=== PATIENT | male | born 1965 | race Caucasian/White ===

== ENCOUNTER 2019-12-11 15:09 | Inpatient (IN) | payer MEDICARE, SELFPAY ==
[2019-12-11] VITALS (34 sets, daily range): BP systolic 110–158; BP diastolic 65–102; PULSE 72–98; RESP 16–28; TEMP 37.2–37.7; O2SAT 90–100; BMI 35.8
[2019-12-11] MEDS: ondansetron 2 mg/ML SDV 2 mL 4 MG IVP ×2 (17:11→19:59)
[2019-12-11] MEDS: morphine 4 mg/mL SDV 1 mL IVP (17:11)
[2019-12-11] MEDS: sodium chloride 0.9% 1,000 ML 999 ML IV (17:12)
[2019-12-11 17:17] LABS: Basophils % 0.3 %; Eosinophils # 0.2 10^3/uL (0.0-0.8); Eosinophils % 1.5 %; Hematocrit 36.7 % (42.0-52.0); Hemoglobin 14.2 g/dL (11.7-16.6); Lymphocytes # 1.1 10^3/uL (0.8-4.8); Mean Corpuscular HGB Conc 38.7 g/dL (30.0-36.0); Mean Corpuscular Hemoglobin 29.3 pg (28.0-34.0); Mean Corpuscular Volume 75.7 fL (80-94); Mean Platelet Volume 10.5 fL (7.4-10.4); Monocytes # 1.2 10^3/uL (0.2-0.9); Monocytes % 10.1 %; Neutrophils # 9.3 10^3/uL (1.8-7.7); Neutrophils % 77.6 %; Nucleated Red Blood Cells % 0 %; Platelet Count 272 10^3/cmm (130-400); Red Blood Count 4.85 10^6/uL (4.1-5.3); Red Cell Distribution Width 16.9 % (12.1-15.1)
--- NOTE | 2019-12-11 17:23 | CTR_ITS ---
PROCEDURE INFORMATION: Exam: CT Abdomen And Pelvis Without Contrast Exam date and time: 12/11/2019 5:33 PM Age: 54 years old Clinical indication: Abdominal pain; Prior surgery; Surgery type: Appy, renal transplant; Additional info: Abdominal pain, h/o renal transport TECHNIQUE: Imaging protocol: Computed tomography of the abdomen and pelvis without contrast. Radiation optimization: All CT scans at this facility use at least one of these dose optimization techniques: automated exposure control; mA and/or kV adjustment per patient size (includes targeted exams where dose is matched to clinical indication); or iterative reconstruction. COMPARISON: No relevant prior studies available. RADIATION DOSE METRICS: Total DLP: 1424.64 mGy-cm FINDINGS: Lungs: Mild atelectasis. Heart: Small pericardial effusion. Liver: Normal. No mass. Gallbladder and bile ducts: Sludge in the gallbladder. The bile ducts are normal. Pancreas: Edema in the pancreatic head and proximal body with peripancreatic fat stranding. Trace amount of fluid in the retroperitoneum inferior to the pancreas and duodenum. Spleen: Normal. No splenomegaly. Adrenals: Normal. No mass. Kidneys and ureters: Atrophic [place] kidneys. 5.5 cm fluid density left renal cyst. Transplanted kidney in the lower right abdomen with mild perinephric stranding and mild hydronephrosis. 2.5 cm oval hypodensity in the transplanted kidney has Hounsfield units of 0. Stomach and bowel: Scattered air-fluid levels and fluid in the small bowel without obstruction. Appendix: The appendix is not visualized. Intraperitoneal space: Unremarkable. No free air. No significant fluid collection. Vasculature: Unremarkable. No abdominal aortic aneurysm. Lymph nodes: Unremarkable. No enlarged lymph nodes. Bladder: Unremarkable as visualized. Reproductive: Unremarkable as visualized. Bones/joints: L5 chronic left L5 pars fracture. No compression fracture. Soft tissues: Metal sutures in the anterior abdominal wall. Small fat containing umbilical hernia. CT/CT abdomen pelvis wo con [id number] IMPRESSION: 1. Acute interstitial edematous pancreatitis involving the head and proximal body. 2. Mild hydronephrosis in the transplanted right kidney with mild perinephric stranding. Rejection or pyelonephritis cannot be excluded. 3. 2.5 cm fluid-density cyst in the transplanted kidney. 5.5 cm fluid density cyst in the [place] left kidney. No further workup is recommended. Radiation Dose CTDIVOL = (mGy): DLP = 1424.64 (mGy-cm)
[2019-12-11 17:41] LABS: Albumin Level 3.4 g/dL (3.5-5.2); Alkaline Phosphatase 91 IU/L (40-130); Anion Gap 15.8 (5-19); Blood Urea Nitrogen 15 mg/dL (6-20); Calcium 8.9 mg/dL (8.5-10.5); Carbon Dioxide 26 mmol/L (22-29); Chloride 86 mmol/L (98-107); Globulin 3.2 g/dL (1.3-4.6); Glomerular Filtration Rate 48.6 mL/min (90-130); Glucose 215 mg/dL (65-115); Osmolality Calculated 263 mOsm/kg (285-295); Sodium 125 mmol/L (136-145); Total Bilirubin 0.3 mg/dL (0.15-1.2); Total Protein 6.6 g/dL (6.6-8.7)
--- NOTE | 2019-12-11 17:44 | ED_ITS ---
Documented by User: Delia Brooks MD 12/12/19 07:42 HPI - Abdominal Pain General: Chief Complaint: Abdominal Pain Stated Complaint: POSS DEHYDRATED Time Seen by Provider: 12/11/19 16:14 History of Present Illness: HPI narrative: This patient is a 54-year-old male presenting today with abdominal pain. His history is significant for a kidney transplant in 1983. He started seeing a new non destructive evaluation manager and was diagnosed with anemia. On Sunday he had a iron infusion for the first time. Sunday afternoon he started having abdominal pain and cramping. The symptoms have been ongoing since then. He has had a poor appetite, nausea and dry heaves but no vomiting. He did not have a bowel movement for several days and thought that was the cause of his symptoms. He has been taking stool softeners and laxatives and this morning did an enema. He had a small bowel movement around noon but it did not change his abdominal pain and cramping. He has not been having any blood in the stool. He has been urinating normally. His only other abdominal surgery was an appendicitis when he was a teenager. He has had multiple surgeries for skin cancer related to his antirejection medications. He denies fever, shortness of breath, cough. MD elicited complaint: abdominal pain Pertinent past history: constipation Onset (ago): day(s) (3) Pain Consistency: constant Location: Diffuse and Periumbilical Severity: severe Quality: cramping Associated Symptoms: Reports anorexia and nausea; Denies chills, fever(s) and vomiting Review of Systems General: Reports: 10 or more systems reviewed and unremarkable except in HPI and below Const: Denies: fever(s), chills, fatigue or malaise Eyes: Denies: change in vision ENMT: Denies: odynophagia Card: Denies: chest pain or swelling of feet/ankles Resp: Denies: dyspnea, productive cough or non-productive cough GI: Reports: abdominal pain and nausea; Denies: vomiting : Denies: flank pain Musc: Denies: neck pain or back pain Skin/Breast: Denies: rash Neuro: Denies: headache(s), numbness in extremities or weakness in extremities Ravin/Lymph: Denies: easy bruising or easy bleeding PFS ED PFSH: Medical History (Updated 12/11/19 @ 20:09 by Mandy Chand MD) Dyslipidemia Hypertension Immunosuppression Medical marijuana use Nephritis Skin cancer Squamous cell cancer Surgical History (Updated 12/11/19 @ 20:02 by Mandy Chand MD) Kidney transplant recipient 1984 Family History (Updated 12/11/19 @ 20:02 by Mandy Chand MD) Other Hypertension Denies family history of Hyperlipidemia Lung disease Social History Smoking and tobacco status: never smoked Physical Exam Const: COMMON NORMALS: no acute distress, patient oriented x3, no limitations and alert GENERAL APPEARANCE: cooperative and comfortable HENMT: HEAD & SCALP: normal to inspection FACE & SINUS: normal facial exam Eye: GENERAL EYE: appearance normal, both eyes and all related structures Neck/C-Spine: COMMON NORMALS: supple, no meningeal signs and no JVD Chest: COMMONS NORMALS: normal inspection of the chest Resp: COMMON NORMALS: normal respiratory effort, No use of accessory muscles and clear to auscultation bilaterally AUSCULTATION: clear to auscultation bilaterally Cardio: COMMON NORMALS: no JVD, regular rate, regular rhythm and No murmurs present (Cardio) RATE: regular rate RHYTHM: regular rhythm GI: AUSCULTATION: Yes normoactive bowel sounds PALPATION: Yes Tenderness to palpation present (GI) Details: other (umbilical to epigastrum) Back/Pelvis: COMMON NORMALS: thoracic and lumbar spine normal to inspection Extremity: COMMON NORMALS: normal to inspection Neuro: COMMON NORMALS: patient oriented x3, moves all extremities, no focal motor deficits and no sensory deficits noted SENSORIUM/ORIENTATION: Yes alert MENINGEAL SIGNS: Yes no meningeal signs Psych: COMMON NORMALS: mental status grossly normal, cooperative and normal affect Skin: COMMON NORMALS: no rashes or lesions noted and turgor normal GENERAL SKIN EXAM: no rashes or lesions noted and turgor normal Course ED course: Patient presenting with abdominal pain. He has history of a kidney transplant years ago. No other abdominal surgeries other than appendix nature. Labs are reported to be very lipemic and so have not been reported out yet. CT without contrast is ordered. He has had some IV fluids and pain medicine. Vital Signs: Vital signs: Vital Signs Temperature 99.0 F 12/11/19 22:45 Pulse Rate 80 12/12/19 05:25 Respiratory Rate 21 H 12/12/19 05:25 Blood Pressure 138/84 12/12/19 05:15 Pulse Oximetry 95 12/12/19 04:15 MDM - Abdominal Pain Lab Data: Labs: Lab Results 12/11/19 12/11/19 12/11/19 Range/Units 17:00 17:00 17:20 WBC 12.0 H (4.0-10.0) 10^3/ uL RBC 4.85 (4.1-5.3) 10^6/u L Hgb 14.2 (11.7-16.6) g/dL Hct 36.7 L (42.0-52.0) % MCV 75.7 L (80-94) fL MCH 29.3 (28.0-34.0) pg MCHC 38.7 H (30.0-36.0) g/dL RDW 16.9 H (12.1-15.1) % Plt Count 272 (130-400) 10^3/c mm MPV 10.5 H (7.4-10.4) fL Neut % (Auto) 77.6 % Lymph % (Auto) 9.0 % [place] % (Auto) 10.1 % Eos % (Auto) 1.5 % Baso % (Auto) 0.3 % Neut # (Auto) 9.3 H (1.8-7.7) 10^3/u L Lymph # (Auto) 1.1 (0.8-4.8) 10^3/u L [place] # (Auto) 1.2 H (0.2-0.9) 10^3/u L Eos # (Auto) 0.2 (0.0-0.8) 10^3/u L Baso # (Auto) 0.0 (0.0-0.1) 10^3/u L Nucleated RBC % (a uto) 0 % Nucleated RBCs # 0.0 /100WBC Sodium 125 L (136-145) mmol/L Potassium 2.8 L* (3.5-5.1) mmol/L Chloride 86 L (98-107) mmol/L Carbon Dioxide 26 (22-29) mmol/L Anion Gap 15.8 (5-19) BUN 15 (6-20) mg/dL Creatinine 1.5 H (0.7-1.2) mg/dL GFR Calculation 48.6 L (90-130) mL/min Glucose 215 H (65-115) mg/dL Calculated Osmolal ity 263 L (285-295) mOsm/k g Calcium 8.9 (8.5-10.5) mg/dL Total Bilirubin 0.3 (0.15-1.2) mg/dL AST 5 (0-40) U/L ALT < 5 (0-41) U/L Alkaline Phosphata se 91 (40-130) IU/L Creatine Kinase 689 H* (39-308) U/L Total Protein 6.6 (6.6-8.7) g/dL Albumin 3.4 L (3.5-5.2) g/dL Globulin 3.2 (1.3-4.6) g/dL Triglycerides 4305 H (0-150) mg/dL Lipase 411 H (13-60) U/L Ethyl Alcohol < 10 (0-10) mg/dL Discharge Plan Discharge Patient Disposition: Admitted As Inpatient Admit Provider: Mandy Chand Clinical Impression: Hypokalemia, Acute hyponatremia Acute pancreatitis Qualifiers: Pancreatitis type: unspecified pancreatitis type Condition: Stable Discharge Date/Time: 12/11/19 21:22 Coding Level of Care Code ED Dip [place] for Chg Fwd Exam Comprehensive Documented by User: Usha See MD 12/11/19 19:19 HPI - Abdominal Pain General: Chief Complaint: Abdominal Pain Stated Complaint: POSS DEHYDRATED Time Seen by Provider: 12/11/19 16:14 PFSH ED PFSH: Medical History (Updated 12/11/19 @ 20:09 by Mandy Chand MD) Dyslipidemia Hypertension Immunosuppression Medical marijuana use Nephritis Skin cancer Squamous cell cancer Surgical History (Updated 12/11/19 @ 20:02 by Mandy Chand MD) Kidney transplant recipient 1984 Family History (Updated 12/11/19 @ 20:02 by Mandy Chand MD) Other Hypertension Denies family history of Hyperlipidemia Lung disease Social History Smoking and tobacco status: never smoked Course Vital Signs: Vital signs: Vital Signs Temperature 99.0 F 12/11/19 22:45 Pulse Rate 80 12/12/19 05:25 Respiratory Rate 21 H 12/12/19 05:25 Blood Pressure 138/84 12/12/19 05:15 Pulse Oximetry 95 12/12/19 04:15 MDM - Abdominal Pain MDM Narrative: Medical decision making narrative: I took patient over from Dr. Brooks. Patient's pain has improved at this time. Patient does have pancreatitis on CT along with hypo-natremia and hypokalemia. I spoke to hospitalist will admit for further rehydration and to replace his potassium. Patient's had no vomiting here. Patient has been stable while in the ER. Lab Data: Labs: Lab Results 12/11/19 12/11/19 12/11/19 Range/Units 17:00 17:00 17:20 WBC 12.0 H (4.0-10.0) 10^3/ uL RBC 4.85 (4.1-5.3) 10^6/u L Hgb 14.2 (11.7-16.6) g/dL Hct 36.7 L (42.0-52.0) % MCV 75.7 L (80-94) fL MCH 29.3 (28.0-34.0) pg MCHC 38.7 H (30.0-36.0) g/dL RDW 16.9 H (12.1-15.1) % Plt Count 272 (130-400) 10^3/c mm MPV 10.5 H (7.4-10.4) fL Neut % (Auto) 77.6 % Lymph % (Auto) 9.0 % [place] % (Auto) 10.1 % Eos % (Auto) 1.5 % Baso % (Auto) 0.3 % Neut # (Auto) 9.3 H (1.8-7.7) 10^3/u L Lymph # (Auto) 1.1 (0.8-4.8) 10^3/u L [place] # (Auto) 1.2 H (0.2-0.9) 10^3/u L Eos # (Auto) 0.2 (0.0-0.8) 10^3/u L Baso # (Auto) 0.0 (0.0-0.1) 10^3/u L Nucleated RBC % (a uto) 0 % Nucleated RBCs # 0.0 /100WBC Sodium 125 L (136-145) mmol/L Potassium 2.8 L* (3.5-5.1) mmol/L Chloride 86 L (98-107) mmol/L Carbon Dioxide 26 (22-29) mmol/L Anion Gap 15.8 (5-19) BUN 15 (6-20) mg/dL Creatinine 1.5 H (0.7-1.2) mg/dL GFR Calculation 48.6 L (90-130) mL/min Glucose 215 H (65-115) mg/dL Calculated Osmolal ity 263 L (285-295) mOsm/k g Calcium 8.9 (8.5-10.5) mg/dL Total Bilirubin 0.3 (0.15-1.2) mg/dL AST 5 (0-40) U/L ALT < 5 (0-41) U/L Alkaline Phosphata se 91 (40-130) IU/L Creatine Kinase 689 H* (39-308) U/L Total Protein 6.6 (6.6-8.7) g/dL Albumin 3.4 L (3.5-5.2) g/dL Globulin 3.2 (1.3-4.6) g/dL Triglycerides 4305 H (0-150) mg/dL Lipase 411 H (13-60) U/L Ethyl Alcohol < 10 (0-10) mg/dL Imaging Data ^: CT Abd/Pel: Radiologist's impression: [address] [address] [address] Scan Report Signed Patient: Jerman Nolan Unit #: [id number] : 1965 Acct#:[id number] Age/Sex: 54 / M ADM Date: 12/11/19 Loc: ER Room/Bed: Attending Dr: Ordering Provider/Ordering MD: Delia Brooks MD Date of Service: 12/11/19 Procedure(s): CT abdomen pelvis wo con [id number] Accession Number(s): [id number] Report Number: [id number] PROCEDURE INFORMATION: Exam: CT Abdomen And Pelvis Without Contrast Exam date and time: 12/11/2019 5:33 PM Age: 54 years old Clinical indication: Abdominal pain; Prior surgery; Surgery type: Appy, renal transplant; Additional info: Abdominal pain, h/o renal transport TECHNIQUE: Imaging protocol: Computed tomography of the abdomen and pelvis without contrast. Radiation optimization: All CT scans at this facility use at least one of these dose optimization techniques: automated exposure control; mA and/or kV adjustment per patient size (includes targeted exams where dose is matched to clinical indication); or iterative reconstruction. COMPARISON: No relevant prior studies available. RADIATION DOSE METRICS: Total DLP: 1424.64 mGy-cm FINDINGS: Lungs: Mild atelectasis. Heart: Small pericardial effusion. Liver: Normal. No mass. Gallbladder and bile ducts: Sludge in the gallbladder. The bile ducts are normal. Pancreas: Edema in the pancreatic head and proximal body with peripancreatic fat stranding. Trace amount of fluid in the retroperitoneum inferior to the pancreas and duodenum. Spleen: Normal. No splenomegaly. Adrenals: Normal. No mass. Kidneys and ureters: Atrophic [place] kidneys. 5.5 cm fluid density left renal cyst. Transplanted kidney in the lower right abdomen with mild perinephric stranding and mild hydronephrosis. 2.5 cm oval hypodensity in the transplanted kidney has Hounsfield units of 0. Stomach and bowel: Scattered air-fluid levels and fluid in the small bowel without obstruction. Appendix: The appendix is not visualized. Intraperitoneal space: Unremarkable. No free air. No significant fluid collection. Vasculature: Unremarkable. No abdominal aortic aneurysm. Lymph nodes: Unremarkable. No enlarged lymph nodes. Bladder: Unremarkable as visualized. Reproductive: Unremarkable as visualized. Bones/joints: L5 chronic left L5 pars fracture. No compression fracture. Soft tissues: Metal sutures in the anterior abdominal wall. Small fat containing umbilical hernia. CT/CT abdomen pelvis con [id number] IMPRESSION: 1. Acute interstitial edematous pancreatitis involving the head and proximal body. 2. Mild hydronephrosis in the transplanted right kidney with mild perinephric stranding. Rejection or pyelonephritis cannot be excluded. 3. 2.5 cm fluid-density cyst in the transplanted kidney. 5.5 cm fluid density cyst in the [place] left kidney. No further workup is recommended. Discharge Plan Discharge Patient Disposition: Admitted As Inpatient Admit Provider: Mandy Chand Clinical Impression: Hypokalemia, Acute hyponatremia Acute pancreatitis Qualifiers: Pancreatitis type: unspecified pancreatitis type Condition: Stable Discharge Date/Time: 12/11/19 21:22 Coding Level of Care Code ED Dip [place] for Chg Fwd Exam Comprehensive
[2019-12-11 17:52] LABS: Alanine Aminotransferase < 5 U/L (0-41); Aspartate Amino Transferase 5 U/L (0-40)
[2019-12-11 18:00] LABS: Creatine Phosphokinase 689 U/L (39-308); Lipase 411 U/L (13-60); Potassium 2.8 mmol/L (3.5-5.1)
[2019-12-11 18:12] LABS: Slide Review Slide Review Perform
--- NOTE | 2019-12-11 19:11 | P.HP_ITS ---
Providers/Chief Complaint Chief Complaint: POSS DEHYDRATED History of Present Illness Jerman Nolan is a 54 year old male who has history of nephritis status post renal transplant 1983, he initially started using sirolimus which caused skin cancer, currently he has started seeing a new transportation manager who has started him on tacrolimus, recently started hydrochlorothiazide for hypertension, he is also on prednisone 10 mg since 1983 came with chief complaint abdominal pain. Patient is stating that his symptoms started on Sunday, he was experiencing epigastric pain 02/15 which is gradually worsening, he has experienced multiple episodes of bilious emesis. He denies any fever, shortness of breath, chest pain, diarrhea. He is endorsing constipation and used enema this morning. He denies radiation of epigastric pain. He is denying dysuria, no change in his voiding habits. He is a non-smoker but endorses to using medical marijuana. Does not drink alcohol. Diagnostics in the ER revealed normal hemodynamics, CT abdomen revealed pancreatitis, no gallstones, I have requested triglyceride levels, alcohol level, Hyponatremia, hypokalemia, MARGOTH Review of Systems Const: Reports: body aches, change in appetite and fatigue Eyes: Denies: blurry vision ENMT: Denies: throat pain Card: Denies: chest pain Resp: Denies: dyspnea GI: Reports: abdominal pain, nausea, vomiting and constipation : Denies: flank pain Musc: Denies: neck pain Skin/Breast: Reports: rash and lesions Neuro: Denies: headache(s) Psych: Denies: anxiety Endo: Denies: polyuria Ravin/Lymph: Denies: easy bruising All/Imm: Denies: urticaria Medications/Allergies Home Medications Medication Instructions Recorded Confirmed Last Taken Type hydrochlorothiazide 25 mg tablet 25 mg PO DAILY #90 tab 09/23/19 12/11/19 12/11/19 Rx atenolol 50 mg PO DAILY 12/11/19 12/11/19 12/10/19 History prednisone 10 mg PO DAILY 12/11/19 12/11/19 12/10/19 History sirolimus [Rapamune] 4 mg PO DAILY 12/11/19 12/11/19 12/10/19 History Allergies Allergy/AdvReac Type Severity Reaction Status Date / Time cephalexin [From Keflex] Allergy ALGY-Rash Verified 12/11/19 16:14 PFSH Acute PFSH: Medical History (Updated 12/11/19 @ 20:04 by Mandy Chand MD) Dyslipidemia Hypertension Immunosuppression Medical marijuana use Nephritis Skin cancer Squamous cell cancer Surgical History (Updated 12/11/19 @ 20:02 by Mandy Chand MD) Kidney transplant recipient 1984 Family History (Updated 12/11/19 @ 20:02 by Mandy Chand MD) Other Hypertension Denies family history of Hyperlipidemia Lung disease Social History Smoking and tobacco status: never smoked Vitals/I&O/Wt Last Vital Signs Temp 99.4 F 12/11/19 15:54 Pulse 83 12/11/19 15:54 Resp 18 12/11/19 17:11 BP 132/85 12/11/19 15:54 Pulse Ox 98 12/11/19 17:11 Weight last 48 hrs Weight 116.573 kg Physical Exam Narrative: EXAM NARRATIVE: Head to toe examination Patient laying comfortably in his bed without any active discomfort He has multiple skin lesions, S1, S2 no tachycardia Abdomen soft, nontender no epigastric tenderness, no signs of retroperitoneal hemorrhage Neurologically nonfocal exam EOMI, PERRLA Lungs are clear to auscultation Melanotic skin lesions all over his body Multiple scar wang over his forehead, face and nose Nose reconstruction Appropriate mood and affect No sign of edema gangrene ulcer of lower extremity Data : 12/11/19 17:00 12/11/19 17:00 A&P Assessment and plan (1) Acute pancreatitis: Status: Acute Qualifiers: Pancreatitis type: unspecified pancreatitis type (2) Hypokalemia: Status: Acute (3) Acute hyponatremia: Status: Acute (4) MARGOTH (acute kidney injury): Status: Acute (5) Dehydration: Status: Acute Additional A&P Information Pancreatitis My suspicion is high for drug-induced pancreatitis, literature supports drug- induced pancreatic inflammation especially with tacrolimus and renal recipients I am checking triglyceride level as these immunosuppressive agents are notorious to cause hyper triglyceridemia N.p.o. Analgesic control with morphine Normal saline 20 KCl at 75 mill per hour Check triglyceride level, lactic acid level, alcohol level, drug screen (I have requested to keep patient in the ER until we receive triglyceride levels to decide about his disposition and appropriate level of care) Hypokalemia due to dehydration Repleted Hyponatremia due to recurrent vomiting and dehydration Continue IV fluid maintenance rate No neurological sign MARGOTH due to dehydration Patient is stating that his baseline creatinine is 1.5 CT abdomen revealed mild hydronephrosis, patient is denying any flank pain, he is voiding urine without any difficulty Monitor creatinine Drug-induced squamous cell skin cancer Patient is seen set making machine operator in [place], he has had multiple Mohs surgeries DVT prophylaxis Heparin N.p.o. Full code Patient uses medical marijuana His new transportation manager is in [place] his name is Dr. Main Attestations Medical Necessity Statement*: Anticipating stay in the hospital to cross more than 2 midnights currently need management for acute pancreatitis Time Spent in Patient Care: 50 Coding Level of Care Code Acute Waiter/Waitress Formal for [facility] Fwd Diagnoses Acute pancreatitis K85.90 Pancreatitis type: unspecified pancreatitis type Hypokalemia E87.6 Acute hyponatremia E87.1 MARGOTH (acute kidney injury) N17.9 Dehydration E86.0
[2019-12-11] MEDS: HYDROmorphone 1 mg/mL INJ 1 mL IVP ×2 (19:58→21:48)
[2019-12-11 20:01] LABS: Alcohol Level < 10 mg/dL (0-10); Triglycerides 4305 mg/dL (0-150)
[2019-12-11 20:23] LABS: Lactic Acid level (Lactate) 0.7 mmol/L (0.5-2.2)
[2019-12-11 21:26] LABS: Protein Urine 1+ (Negative); Urine Appearance Clear (CLEAR); Urine Color Yellow (Yellow); pH Urine 6.5 (5-7)
[2019-12-11 21:27] LABS: Add Urine Microscopic? YES; Bilirubin Urine Neg (NEGATIVE); Blood Urine Neg (Negative); Glucose Urine UA 2+ (Normal); Ketones Urine Negative (Negative); Leukocyte Esterase Urine Negative (Negative); Nitrate Urine Negative (Negative); Urobilinogen Urine Norm (Negative)
[2019-12-11 21:35] LABS: Add Urine Culture? No
[2019-12-11] MEDS: heparin 5,000 unit/mL INJ 1 mL 5000 UNIT SUBCUT (21:49)
[2019-12-11] MEDS: potassium chloride premix 40 MEQ/100 ML PREMIX 25 MEQ IV (21:55)
[2019-12-11] MEDS: lidocaine 1% INJ 20 mL 5 ML IV (21:56)
[2019-12-11] MEDS: insulin regular-human 250 UNIT in sodium chloride 0.9% 250 ML IV (22:10)
[2019-12-11 22:13] LABS: Glucose Point of Care 175 mg/dL (70-110)
--- NOTE | 2019-12-11 22:15 | PC.NURSE ---
Insulin drip started at 2210 @3.45
[2019-12-11 22:32] LABS: Amphetamines Screen Urine Negative (Negative); Barbiturates Screen Urine Negative (Negative); Benzodiazepines Screen Urine Negative (Negative); Cocaine Screen Urine Negative (Negative); Opiate Screen Urine Positive (Negative); PCP Screen Urine Negative (Negative); THC Screen Urine Positive (Negative)
[2019-12-11 23:14] LABS: Glucose Point of Care 178 mg/dL (70-110)
[2019-12-12] VITALS (73 sets, daily range): BP systolic 95–160; BP diastolic 64–102; PULSE 67–84; RESP 14–29; TEMP 36.5; O2SAT 93–96
[2019-12-12] MEDS: insulin regular-human 250 UNIT in sodium chloride 0.9% 250 ML IV (00:10)
[2019-12-12 00:14] LABS: Glucose Point of Care 174 mg/dL (70-110)
[2019-12-12 01:13] LABS: Glucose Point of Care 170 mg/dL (70-110)
[2019-12-12] MEDS: dextrose 5%-ns + KCl 40 40 MEQ/1,000 ML BAG 100 MEQ IV (02:00)
[2019-12-12 02:15] LABS: Glucose Point of Care 166 mg/dL (70-110)
[2019-12-12 03:14] LABS: Glucose Point of Care 187 mg/dL (70-110)
[2019-12-12 04:19] LABS: Glucose Point of Care 181 mg/dL (70-110)
[2019-12-12 05:25] LABS: Basophils % 0.2 %; Eosinophils # 0.2 10^3/uL (0.0-0.8); Eosinophils % 2.2 %; Hematocrit 35.4 % (42.0-52.0); Hemoglobin 12.6 g/dL (11.7-16.6); Lymphocytes # 1.2 10^3/uL (0.8-4.8); Mean Corpuscular HGB Conc 35.6 g/dL (30.0-36.0); Mean Corpuscular Hemoglobin 27.5 pg (28.0-34.0); Mean Corpuscular Volume 77.3 fL (80-94); Mean Platelet Volume 11.1 fL (7.4-10.4); Monocytes # 0.9 10^3/uL (0.2-0.9); Monocytes % 9.4 %; Neutrophils # 6.8 10^3/uL (1.8-7.7); Neutrophils % 73.5 %; Nucleated Red Blood Cells % 0 %; Platelet Count 204 10^3/cmm (130-400); Red Blood Count 4.58 10^6/uL (4.1-5.3); White Blood Count 9.3 10^3/uL (4.0-10.0)
[2019-12-12] MEDS: heparin 5,000 unit/mL INJ 1 mL 5000 UNIT SUBCUT (05:31)
--- NOTE | 2019-12-12 05:46 | PC.NURSE ---
Patient lost iv access. No BG done for the 0500 hour.
[2019-12-12 06:08] LABS: Glucose Point of Care 192 mg/dL (70-110)
[2019-12-12 06:18] LABS: Alkaline Phosphatase 82 IU/L (40-130); Anion Gap 16.3 (5-19); Blood Urea Nitrogen 15 mg/dL (6-20); Calcium 8.3 mg/dL (8.5-10.5); Carbon Dioxide 25 mmol/L (22-29); Chloride 94 mmol/L (98-107); Globulin 3.4 g/dL (1.3-4.6); Glucose 160 mg/dL (65-115); Osmolality Calculated 274 mOsm/kg (285-295); Potassium 3.3 mmol/L (3.5-5.1); Sodium 132 mmol/L (136-145); Total Bilirubin 0.2 mg/dL (0.15-1.2); Total Protein 6.4 g/dL (6.6-8.7)
[2019-12-12 06:29] LABS: Alanine Aminotransferase < 5 U/L (0-41); Aspartate Amino Transferase 5 U/L (0-40)
--- NOTE | 2019-12-12 07:00 | PC.NURSE ---
Report Bedside report complete. Insulin and D5 NS with KCL infusing to the right ac IV access. pt is alert and oriented. no c/o pain at this time.
[2019-12-12 07:50] LABS: Glucose Point of Care 200 mg/dL (70-110)
[2019-12-12 09:02] LABS: Glucose Point of Care 195 mg/dL (70-110)
[2019-12-12 09:06] LABS: Glucose Point of Care 191 mg/dL (70-110)
--- NOTE | 2019-12-12 09:25 | ECG_ITS ---
Measurements Intervals [place] Rate: 77 P: 19 AR: 194 QRS: -18 QRSD: 156 T: 131 QT: 431 QTc: 490 SINUS RHYTHM LEFT BUNDLE BRANCH BLOCK [120+ ms QRS DURATION, 80+ ms Q/S IN V1/V2, 85+ ms R IN I/aVL/V5/V6] No previous ECG available for comparison Electronically Signed On 12-12-2019 17:58:44 CDT by Aaliyah Machado M.D. [email or web address]
[2019-12-12 09:58] LABS: Glucose Point of Care 195 mg/dL (70-110)
--- NOTE | 2019-12-12 10:00 | PC.NURSE ---
Dr. Gomez on the unit facilitating transfer to [facility] to patient's kidney specialist for transplant f/u care.
[2019-12-12] MEDS: tacrolimus 0.5 mg Capsule 4 MG PO (10:10)
[2019-12-12] MEDS: dextrose 5%-sod chloride 0.9% 1,000 ML 150 ML IV (10:12)
[2019-12-12] MEDS: predniSONE 10 mg Tablet PO (10:12)
[2019-12-12] MEDS: atenolol 50 mg Tablet PO (10:12)
[2019-12-12] MEDS: aztreonam 1,000 MG in sodium chloride 0.9% (plus) 50 ML 100 MG IV (10:13)
[2019-12-12 10:17] LABS: Procalcitonin 0.27 ng/mL (0-0.5)
--- NOTE | 2019-12-12 10:25 | USCV_ITS ---
Jerman Nolan Age: 54 Gender: M : 1965 Exam Date: 12/12/2019 12:32 Ordering Phys: Julian Gomez MD Technologist: Sophia Garcia Exam Location: [facility] [place] Indication: [facility] CHANGES BP: 143 / 95 HR: 71 Rhythm: Sinus Technical Quality: Adequate MEASUREMENTS (Male / Female) Normal Values 2D ECHO LV Diastolic Diameter PLAX 4.6 cm 4.2 - 5.9 / 3.9 - 5.3 cm LV Systolic Diameter PLAX 3.3 cm IVS Diastolic Thickness 1.1 cm 0.6 - 1.0 / 0.6 - 0.9 cm IVS Systolic Thickness 1.3 cm LVPW Diastolic Thickness 1.2 cm 0.6 - 1.0 / 0.6 - 0.9 cm LVPW Systolic Thickness 1.8 cm LVOT Diameter 2.2 cm LV Ejection Fraction 2D Teich 54.8 % LV Ejection Fraction MOD 2C 65.1 % LV Ejection Fraction 2C AL 66.2 % LA Diameter 4.4 cm LA Width 3.7 cm LA Height 5.0 cm RA Width 3.6 cm RA Height 5.7 cm M-MODE LV Diastolic Diameter MM 5.9 cm 4.2 - 5.9 / 3.9 - 5.3 cm LV Systolic Diameter MM 4.3 cm LV Ejection Fraction MM Teich 51.8 % IVS Diastolic Thickness MM 1.1 cm 0.6 - 1.0 / 0.6 - 0.9 cm IVS Systolic Thickness MM 1.3 cm LVPW Diastolic Thickness MM 1.1 cm 0.6 - 1.0 / 0.6 - 0.9 cm LVPW Systolic Thickness MM 1.5 cm Aortic Annulus Diameter 3.2 cm LA Ao Ratio MM 1.4 MV E Point Septal Separation 1.2 cm DOPPLER AV Peak Velocity 134.0 cm/s LVOT Peak Velocity 126.0 cm/s AV Area Cont Eq vti 3.3 cm squared AV Area Cont Eq pk 3.6 cm squared MV Peak Velocity 94.0 cm/s MV Area PHT 5.0 cm squared Mitral E to A Ratio 0.9 MV E' Velocity 12.0 cm/s Mitral E to MV E' Ratio 8.5 Mitral E to LV E' Lateral Ratio 6.3 Mitral E to LV E' Septal Ratio 13.0 TR Peak Velocity 99.0 cm/s TR Peak Gradient 4.0 mmHg Right Atrial Pressure 3.0 mmHg Pulmonary Artery Systolic Pressu 6.9 mmHg PV Peak Velocity 126.0 cm/s RV Acceleration Time 0.1 s FINDINGS Left Ventricle Normal left ventricular cavity size. Normal left ventricular systolic function. No regional wall motion abnormalities. Left ventricular ejection fraction is estimated at 55 %. Grade I/IV diastolic dysfunction (abnormal relaxation filling pattern), normal to mildly elevated filling pressures. Right Ventricle The right ventricle is normal in size and function. Right Atrium The right atrium is normal in size. Left Atrium The left atrium is normal in size. Mitral Valve Structurally normal mitral valve without significant stenosis or prolapse. There is no mitral regurgitation. Aortic Valve Structurally normal aortic valve without significant sclerosis or stenosis. There is no aortic regurgitation. Tricuspid Valve Structurally normal tricuspid valve without significant stenosis or regurgitation. Pulmonary artery systolic pressure is normal. Pulmonic Valve Structurally normal pulmonic valve without significant stenosis. There is no pulmonic regurgitation. Pericardium Normal pericardium without effusion. Aorta Normal ascending aorta dimension. CONCLUSIONS 1-Normal left ventricular cavity size. Normal left ventricular systolic function. No regional wall motion abnormalities. Left ventricular ejection fraction is estimated at 55 %. Grade I/IV diastolic dysfunction (abnormal relaxation filling pattern), normal to mildly elevated filling pressures. 2-There is no pericardial effusion. 3-No significant valve abnormalities. 4-Pulmonary artery systolic pressure is within normal limits. 5-Right atrial pressure is around 5 mm of mercury. 6-There are no prior echocardiogram studies to compare. Mandy Romo MD (Electronically Signed) Final Date: 12 December 2019 19:07 S
[2019-12-12 10:30] LABS: Lactate (Lactic Acid level) 0.6 mmol/L (0.5-2.2)
[2019-12-12 10:32] LABS: Creatine Phosphokinase 453 U/L (39-308)
[2019-12-12] MEDS: lidocaine 1% INJ 20 mL 5 ML IV (10:40)
[2019-12-12] MEDS: potassium chloride premix 40 MEQ/100 ML PREMIX 25 MEQ IV (10:41)
[2019-12-12] MEDS: morphine 4 mg/mL SDV 1 mL 2 MG IVP (10:47)
[2019-12-12] MEDS: ondansetron 2 mg/ML SDV 2 mL 4 MG IVP (10:49)
[2019-12-12 11:08] LABS: Glucose Point of Care 171 mg/dL (70-110)
--- NOTE | 2019-12-12 11:45 | PC.NURSE ---
Report called to [facility]
[2019-12-12 12:08] LABS: Glucose Point of Care 155 mg/dL (70-110)
--- NOTE | 2019-12-12 12:55 | PM.TDS ---
Transfer Summary Providers Date of Admission: 12/11/19 19:10 Date of Discharge: 12/12/19 Attending Provider at Admission: Mandy Chand MD Attending Provider at Transfer: Julian Gomez MD Anticipated Date of Transfer: Anticipated date of transfer: 12/12/19 Receiving Facility & Provider: Receiving Provider: [Dr. Jacob] Receiving facility[place] [facility] [place] Diagnoses at Discharge Discharge Diagnosis (1) Acute pancreatitis: Status: Acute Qualifiers: Pancreatitis type: unspecified pancreatitis type (2) Hypokalemia: Status: Acute (3) Acute hyponatremia: Status: Acute (4) MARGOTH (acute kidney injury): Status: Acute (5) Dehydration: Status: Acute (6) Kidney transplant recipient: Status: Acute Problem details: 1983 (7) Pyelonephritis of transplanted kidney: Status: Acute (8) Acute rejection of renal transplant: Status: Acute Reason for Visit Reason for Visit: POSS DEHYDRATED Hospital Course Discharge Summary: Jerman Nolan is a 54 year old male who has history of nephritis status post renal transplant 1983, he initially started using sirolimus which caused skin cancer, currently he has started seeing a new allergy and immunology specialist who has started him on tacrolimus, recently started hydrochlorothiazide for hypertension, he is also on prednisone 10 mg every other day since 1983 came with chief complaint abdominal pain. Patient is stating that his symptoms started on Sunday, he was experiencing epigastric pain 02/15 which is gradually worsening, he has experienced multiple episodes of bilious emesis. He denies any fever, shortness of breath, chest pain, diarrhea. He is endorsing constipation and used enema this morning. He denies radiation of epigastric pain. He is denying dysuria, no change in his voiding habits. He is a non-smoker but endorses to using medical marijuana. Does not drink alcohol. In the ER blood work revealed hypertriglyceridemia of 4300 with a negative alcohol level and a negative drug screen for urine but CT abdomen concerning for pancreatitis and possible pyelonephritis of the transplanted kidney versus rejection. He was admitted to the ICU and started on insulin drip. By morning his triglyceride levels were sent to more than 4700. He has remained hemodynamically stable, afebrile. Given possible need of plasmapheresis and his history of renal transplant and possible organ rejection versus pyelonephritis of the transplanted kidney transfer was sought to a center where patient's parent allergy and immunology specialist is present. Case was discussed with Dr. Jacob at [facility] ICU and he graciously accepted the patient. He has been transferred into likely stable condition for further treatment. Physical Exam Narrative: EXAM NARRATIVE: General: No acute distress, AO x3 HEENT: PERRLA, pupils bilaterally equal and reactive Chest: Normal vesicular breath sounds, no added sounds, equal good air entry bilaterally CVS: S1-S2 regular, no murmurs, no tachycardia, no gallops, no rubs Abdomen: Soft tender in the epigastric and right flank, no rebound no guarding bowel sounds sluggish Neuro: No focal deficits, no facial deformity, AO x3, power 5/5 in all limbs TS Data Data Completed and Pending: Completed Studies During Hospitalization Category Date Time Status CT abdomen pelvis wo con [id number] Urge nt Cat Scan 12/11/19 17:23 Completed Pending at discharge Category Date Time Status Basic Metabolic P lili Routine Lab 12/12/19 14:00 Ordered Blood Culture Sta t Lab 12/12/19 10:06 Results MRSA by PCR Routi ne Lab 12/12/19 12:04 Received Triglycerides Q8H Lab 12/12/19 14:00 Ordered Triglycerides Q8H Lab 12/12/19 22:00 Ordered Triglycerides Q8H Lab 12/13/19 06:00 Ordered Triglycerides Q8H Lab 12/13/19 14:00 Ordered Urine Culture Sta t Lab 12/12/19 09:32 Uncollected CV echo complete* [id number] Routine Ultrasound 12/12/19 10:25 Ordered Labs from last 24 hours 12/12/19 12/12/19 12/12/19 11:54 11:05 10:03 WBC RBC Hgb Hct MCV MCH MCHC RDW Plt Count MPV Neut % (Auto) Lymph % (Auto) [place] % (Auto) Eos % (Auto) Baso % (Auto) Neut # (Auto) Lymph # (Auto) [place] # (Auto) Eos # (Auto) Baso # (Auto) Nucleated RBC % (a uto) Nucleated RBCs # Sodium Potassium Chloride Carbon Dioxide Anion Gap BUN Creatinine GFR Calculation Glucose POC Glucose 155 171 Calculated Osmolal ity Lactic Acid (Sepsi s) Lactate 0.6 Calcium Total Bilirubin AST ALT Alkaline Phosphata se Creatine Kinase Total Protein Albumin Globulin Triglycerides Lipase Procalcitonin Urine Color Urine Appearance Urine pH Ur Specific Gravit y Urine Protein Urine Glucose (UA) Urine Ketones Urine Blood Urine Nitrate Urine Bilirubin Urine Urobilinogen Ur Leukocyte Apryl ase Urine RBC Urine WBC Ur Squamous Epith Cells Ur Transition Epit h Cell Ur Renal Epithelia l Cell Urine Bacteria Urine Mucus Urine Opiates Scre en Ur Barbiturates Sc reen Ur Phencyclidine S crn Ur Amphetamines Sc reen U Benzodiazepines Scrn Urine Cocaine Scre en U Marijuana (THC) Screen Ethyl Alcohol 12/12/19 12/12/19 12/12/19 09:55 08:59 08:10 WBC RBC Hgb Hct MCV MCH MCHC RDW Plt Count MPV Neut % (Auto) Lymph % (Auto) [place] % (Auto) Eos % (Auto) Baso % (Auto) Neut # (Auto) Lymph # (Auto) [place] # (Auto) Eos # (Auto) Baso # (Auto) Nucleated RBC % (a uto) Nucleated RBCs # Sodium Potassium Chloride Carbon Dioxide Anion Gap BUN Creatinine GFR Calculation Glucose POC Glucose 195 195 191 Calculated Osmolal ity Lactic Acid (Sepsi s) Lactate Calcium Total Bilirubin AST ALT Alkaline Phosphata se Creatine Kinase Total Protein Albumin Globulin Triglycerides Lipase Procalcitonin Urine Color Urine Appearance Urine pH Ur Specific Gravit y Urine Protein Urine Glucose (UA) Urine Ketones Urine Blood Urine Nitrate Urine Bilirubin Urine Urobilinogen Ur Leukocyte Apryl ase Urine RBC Urine WBC Ur Squamous Epith Cells Ur Transition Epit h Cell Ur Renal Epithelia l Cell Urine Bacteria Urine Mucus Urine Opiates Scre en Ur Barbiturates Sc reen Ur Phencyclidine S crn Ur Amphetamines Sc reen U Benzodiazepines Scrn Urine Cocaine Scre en U Marijuana (THC) Screen Ethyl Alcohol 12/12/19 12/12/19 12/12/19 07:43 06:07 04:38 WBC RBC Hgb Hct MCV MCH MCHC RDW Plt Count MPV Neut % (Auto) Lymph % (Auto) [place] % (Auto) Eos % (Auto) Baso % (Auto) Neut # (Auto) Lymph # (Auto) [place] # (Auto) Eos # (Auto) Baso # (Auto) Nucleated RBC % (a uto) Nucleated RBCs # Sodium Potassium Chloride Carbon Dioxide Anion Gap BUN Creatinine GFR Calculation Glucose POC Glucose 200 192 Calculated Osmolal ity Lactic Acid (Sepsi s) Lactate Calcium Total Bilirubin AST ALT Alkaline Phosphata se Creatine Kinase 453 H* Total Protein Albumin Globulin Triglycerides Lipase Procalcitonin 0.27 Urine Color Urine Appearance Urine pH Ur Specific Gravit y Urine Protein Urine Glucose (UA) Urine Ketones Urine Blood Urine Nitrate Urine Bilirubin Urine Urobilinogen Ur Leukocyte Apryl ase Urine RBC Urine WBC Ur Squamous Epith Cells Ur Transition Epit h Cell Ur Renal Epithelia l Cell Urine Bacteria Urine Mucus Urine Opiates Scre en Ur Barbiturates Sc reen Ur Phencyclidine S crn Ur Amphetamines Sc reen U Benzodiazepines Scrn Urine Cocaine Scre en U Marijuana (THC) Screen Ethyl Alcohol 12/12/19 12/12/19 12/12/19 04:38 04:38 04:38 WBC 9.3 RBC 4.58 Hgb 12.6 Hct 35.4 L MCV 77.3 L MCH 27.5 L MCHC 35.6 D RDW 17.0 H Plt Count 204 MPV 11.1 H Neut % (Auto) 73.5 Lymph % (Auto) 13.0 [place] % (Auto) 9.4 Eos % (Auto) 2.2 Baso % (Auto) 0.2 Neut # (Auto) 6.8 Lymph # (Auto) 1.2 [place] # (Auto) 0.9 Eos # (Auto) 0.2 Baso # (Auto) 0.0 Nucleated RBC % (a uto) 0 Nucleated RBCs # 0.0 Sodium 132 L Potassium 3.3 L Chloride 94 L Carbon Dioxide 25 Anion Gap 16.3 BUN 15 Creatinine 1.9 H GFR Calculation 37.0 L Glucose 160 H POC Glucose Calculated Osmolal ity 274 L Lactic Acid (Sepsi s) Lactate Calcium 8.3 L Total Bilirubin 0.2 AST 5 ALT < 5 Alkaline Phosphata se 82 Creatine Kinase Total Protein 6.4 L Albumin 3.0 L Globulin 3.4 Triglycerides > 4738 H Lipase Procalcitonin Urine Color Urine Appearance Urine pH Ur Specific Gravit y Urine Protein Urine Glucose (UA) Urine Ketones Urine Blood Urine Nitrate Urine Bilirubin Urine Urobilinogen Ur Leukocyte Apryl ase Urine RBC Urine WBC Ur Squamous Epith Cells Ur Transition Epit h Cell Ur Renal Epithelia l Cell Urine Bacteria Urine Mucus Urine Opiates Scre en Ur Barbiturates Sc reen Ur Phencyclidine S crn Ur Amphetamines Sc reen U Benzodiazepines Scrn Urine Cocaine Scre en U Marijuana (THC) Screen Ethyl Alcohol 12/12/19 12/12/19 12/12/19 04:15 03:12 02:12 WBC RBC Hgb Hct MCV MCH MCHC RDW Plt Count MPV Neut % (Auto) Lymph % (Auto) [place] % (Auto) Eos % (Auto) Baso % (Auto) Neut # (Auto) Lymph # (Auto) [place] # (Auto) Eos # (Auto) Baso # (Auto) Nucleated RBC % (a uto) Nucleated RBCs # Sodium Potassium Chloride Carbon Dioxide Anion Gap BUN Creatinine GFR Calculation Glucose POC Glucose 181 187 166 Calculated Osmolal ity Lactic Acid (Sepsi s) Lactate Calcium Total Bilirubin AST ALT Alkaline Phosphata se Creatine Kinase Total Protein Albumin Globulin Triglycerides Lipase Procalcitonin Urine Color Urine Appearance Urine pH Ur Specific Gravit y Urine Protein Urine Glucose (UA) Urine Ketones Urine Blood Urine Nitrate Urine Bilirubin Urine Urobilinogen Ur Leukocyte Apryl ase Urine RBC Urine WBC Ur Squamous Epith Cells Ur Transition Epit h Cell Ur Renal Epithelia l Cell Urine Bacteria Urine Mucus Urine Opiates Scre en Ur Barbiturates Sc reen Ur Phencyclidine S crn Ur Amphetamines Sc reen U Benzodiazepines Scrn Urine Cocaine Scre en U Marijuana (THC) Screen Ethyl Alcohol 12/12/19 12/12/19 12/11/19 01:10 00:10 23:11 WBC RBC Hgb Hct MCV MCH MCHC RDW Plt Count MPV Neut % (Auto) Lymph % (Auto) [place] % (Auto) Eos % (Auto) Baso % (Auto) Neut # (Auto) Lymph # (Auto) [place] # (Auto) Eos # (Auto) Baso # (Auto) Nucleated RBC % (a uto) Nucleated RBCs # Sodium Potassium Chloride Carbon Dioxide Anion Gap BUN Creatinine GFR Calculation Glucose POC Glucose 170 174 178 Calculated Osmolal ity Lactic Acid (Sepsi s) Lactate Calcium Total Bilirubin AST ALT Alkaline Phosphata se Creatine Kinase Total Protein Albumin Globulin Triglycerides Lipase Procalcitonin Urine Color Urine Appearance Urine pH Ur Specific Gravit y Urine Protein Urine Glucose (UA) Urine Ketones Urine Blood Urine Nitrate Urine Bilirubin Urine Urobilinogen Ur Leukocyte Apryl ase Urine RBC Urine WBC Ur Squamous Epith Cells Ur Transition Epit h Cell Ur Renal Epithelia l Cell Urine Bacteria Urine Mucus Urine Opiates Scre en Ur Barbiturates Sc reen Ur Phencyclidine S crn Ur Amphetamines Sc reen U Benzodiazepines Scrn Urine Cocaine Scre en U Marijuana (THC) Screen Ethyl Alcohol 12/11/19 12/11/19 12/11/19 22:07 20:07 20:07 WBC RBC Hgb Hct MCV MCH MCHC RDW Plt Count MPV Neut % (Auto) Lymph % (Auto) [place] % (Auto) Eos % (Auto) Baso % (Auto) Neut # (Auto) Lymph # (Auto) [place] # (Auto) Eos # (Auto) Baso # (Auto) Nucleated RBC % (a uto) Nucleated RBCs # Sodium Potassium Chloride Carbon Dioxide Anion Gap BUN Creatinine GFR Calculation Glucose POC Glucose 175 Calculated Osmolal ity Lactic Acid (Sepsi s) Lactate Calcium Total Bilirubin AST ALT Alkaline Phosphata se Creatine Kinase Total Protein Albumin Globulin Triglycerides Lipase Procalcitonin Urine Color Yellow Urine Appearance Clear Urine pH 6.5 Ur Specific Gravit y 1.010 Urine Protein 1+ H Urine Glucose (UA) 2+ Urine Ketones Negative Urine Blood Neg Urine Nitrate Negative Urine Bilirubin Neg Urine Urobilinogen Norm Ur Leukocyte Apryl ase Negative Urine RBC None Urine WBC None Ur Squamous Epith Cells None Ur Transition Epit h Cell None Ur Renal Epithelia l Cell None Urine Bacteria None Urine Mucus None Urine Opiates Scre en Positive H Ur Barbiturates Sc reen Negative Ur Phencyclidine S crn Negative Ur Amphetamines Sc reen Negative U Benzodiazepines Scrn Negative Urine Cocaine Scre en Negative U Marijuana (THC) Screen Positive H Ethyl Alcohol 12/11/19 12/11/19 12/11/19 20:02 17:20 17:00 WBC RBC Hgb Hct MCV MCH MCHC RDW Plt Count MPV Neut % (Auto) Lymph % (Auto) [place] % (Auto) Eos % (Auto) Baso % (Auto) Neut # (Auto) Lymph # (Auto) [place] # (Auto) Eos # (Auto) Baso # (Auto) Nucleated RBC % (a uto) Nucleated RBCs # Sodium 125 L Potassium 2.8 L* Chloride 86 L Carbon Dioxide 26 Anion Gap 15.8 BUN 15 Creatinine 1.5 H GFR Calculation 48.6 L Glucose 215 H POC Glucose Calculated Osmolal ity 263 L Lactic Acid (Sepsi s) 0.7 Lactate Calcium 8.9 Total Bilirubin 0.3 AST 5 ALT < 5 Alkaline Phosphata se 91 Creatine Kinase 689 H* Total Protein 6.6 Albumin 3.4 L Globulin 3.2 Triglycerides 4305 H Lipase 411 H Procalcitonin Urine Color Urine Appearance Urine pH Ur Specific Gravit y Urine Protein Urine Glucose (UA) Urine Ketones Urine Blood Urine Nitrate Urine Bilirubin Urine Urobilinogen Ur Leukocyte Apryl ase Urine RBC Urine WBC Ur Squamous Epith Cells Ur Transition Epit h Cell Ur Renal Epithelia l Cell Urine Bacteria Urine Mucus Urine Opiates Scre en Ur Barbiturates Sc reen Ur Phencyclidine S crn Ur Amphetamines Sc reen U Benzodiazepines Scrn Urine Cocaine Scre en U Marijuana (THC) Screen Ethyl Alcohol < 10 12/11/19 17:00 WBC 12.0 H RBC 4.85 Hgb 14.2 Hct 36.7 L MCV 75.7 L MCH 29.3 MCHC 38.7 H RDW 16.9 H Plt Count 272 MPV 10.5 H Neut % (Auto) 77.6 Lymph % (Auto) 9.0 [place] % (Auto) 10.1 Eos % (Auto) 1.5 Baso % (Auto) 0.3 Neut # (Auto) 9.3 H Lymph # (Auto) 1.1 [place] # (Auto) 1.2 H Eos # (Auto) 0.2 Baso # (Auto) 0.0 Nucleated RBC % (a uto) 0 Nucleated RBCs # 0.0 Sodium Potassium Chloride Carbon Dioxide Anion Gap BUN Creatinine GFR Calculation Glucose POC Glucose Calculated Osmolal ity Lactic Acid (Sepsi s) Lactate Calcium Total Bilirubin AST ALT Alkaline Phosphata se Creatine Kinase Total Protein Albumin Globulin Triglycerides Lipase Procalcitonin Urine Color Urine Appearance Urine pH Ur Specific Gravit y Urine Protein Urine Glucose (UA) Urine Ketones Urine Blood Urine Nitrate Urine Bilirubin Urine Urobilinogen Ur Leukocyte Apryl ase Urine RBC Urine WBC Ur Squamous Epith Cells Ur Transition Epit h Cell Ur Renal Epithelia l Cell Urine Bacteria Urine Mucus Urine Opiates Scre en Ur Barbiturates Sc reen Ur Phencyclidine S crn Ur Amphetamines Sc reen U Benzodiazepines Scrn Urine Cocaine Scre en U Marijuana (THC) Screen Ethyl Alcohol Addt'l Data from Hospital Stay: [place] [address] CT Scan Report Signed Patient: Rose Nolan #: [id number] : 1965Acct#:[id number] Age/Sex: 54 / MADM Date: 12/11/19 Loc: ERRoom/Bed: Attending Dr: Ordering Provider/Ordering MD: Delia Brooks MD Date of Service: 12/11/19 Procedure(s): CT abdomen pelvis wo con [id number] Accession Number(s): [id number] Report Number: [id number] PROCEDURE INFORMATION: Exam: CT Abdomen And Pelvis Without Contrast Exam date and time: 12/11/2019 5:33 PM Age: 54 years old Clinical indication: Abdominal pain; Prior surgery; Surgery type: Appy, renal transplant; Additional info: Abdominal pain, h/o renal transport TECHNIQUE: Imaging protocol: Computed tomography of the abdomen and pelvis without contrast. Radiation optimization: All CT scans at this facility use at least one of these dose optimization techniques: automated exposure control; mA and/or kV adjustment per patient size (includes targeted exams where dose is matched to clinical indication); or iterative reconstruction. COMPARISON: No relevant prior studies available. RADIATION DOSE METRICS: Total DLP: 1424.64 mGy-cm FINDINGS: Lungs: Mild atelectasis. Heart: Small pericardial effusion. Liver: Normal. No mass. Gallbladder and bile ducts: Sludge in the gallbladder. The bile ducts are normal. Pancreas: Edema in the pancreatic head and proximal body with peripancreatic fat stranding. Trace amount of fluid in the retroperitoneum inferior to the pancreas and duodenum. Spleen: Normal. No splenomegaly. Adrenals: Normal. No mass. Kidneys and ureters: Atrophic viejas kidneys. 5.5 cm fluid density left renal cyst. Transplanted kidney in the lower right abdomen with mild perinephric stranding and mild hydronephrosis. 2.5 cm oval hypodensity in the transplanted kidney has Hounsfield units of 0. Stomach and bowel: Scattered air-fluid levels and fluid in the small bowel without obstruction. Appendix: The appendix is not visualized. Intraperitoneal space: Unremarkable. No free air. No significant fluid collection. Vasculature: Unremarkable. No abdominal aortic aneurysm. Lymph nodes: Unremarkable. No enlarged lymph nodes. Bladder: Unremarkable as visualized. Reproductive: Unremarkable as visualized. Bones/joints: L5 chronic left L5 pars fracture. No compression fracture. Soft tissues: Metal sutures in the anterior abdominal wall. Small fat containing umbilical hernia. CT/CT abdomen pelvis con [id number] IMPRESSION: 1. Acute interstitial edematous pancreatitis involving the head and proximal body. 2. Mild hydronephrosis in the transplanted right kidney with mild perinephric stranding. Rejection or pyelonephritis cannot be excluded. 3. 2.5 cm fluid-density cyst in the transplanted kidney. 5.5 cm fluid density cyst in the viejas left kidney. No further workup is recommended. Vitals: Last Vital Signs Temp 97.7 F 12/12/19 08:00 Pulse 71 12/12/19 11:00 Resp 23 H 12/12/19 11:00 BP 144/99 12/12/19 11:00 Pulse Ox 94 12/12/19 11:00 TS Medications Medications Home Medications hydrochlorothiazide 25 mg tablet 25 mg PO DAILY #90 tab 09/23/19 [Rx Confirmed 12/11/19] atenolol 50 mg PO DAILY 12/11/19 [History Confirmed 12/11/19] prednisone 10 mg PO DAILY 12/11/19 [History Confirmed 12/11/19] sirolimus [Rapamune] 4 mg PO DAILY 12/11/19 [History Confirmed 12/11/19] Active Medications Atenolol (Tenormin) 50 mg PO DAILY LAUREN Last Admin: 12/12/19 10:12 Dose: 50 mg Documented by: Dextrose (D50w) 25 ml IVP ONCE PRN; Protocol PRN Reason: hypoglycemia protocol Dextrose (D50w) 50 ml IVP PRN PRN; Protocol PRN Reason: hypoglycemia protocol Glucagon (Glucagen) 1 mg IM ONCE PRN; Protocol PRN Reason: Adult Acute Hypoglycemia Prot Heparin Sodium (Beef Lung) (Heparin) 5,000 unit SUBCUT Q12H LAUREN Dextrose (D5w) 500 mls @ 100 mls/hr IV ONCE PRN; Protocol PRN Reason: Adult Acute Hypoglycemia Prot Insulin Human Regular 250 unit (/ Sodium Chloride) 252.5 mls @ 0 mls/hr IV .Q0M LAUREN; Protocol Last Titration: 12/12/19 06:07 Dose: 4 mls/hr, 4 mls/hr Documented by: Dextrose/Sodium Chloride (Dextrose 5%-Sod Chloride 0.9%) 1,000 mls @ 150 mls/hr IV .Q6H40M LAUREN Last Admin: 12/12/19 10:12 Dose: 150 mls/hr Documented by: Aztreonam 1,000 mg/ Sodium (Chloride) 50 mls @ 100 mls/hr IV Q12H LAUREN; Protocol Last Admin: 12/12/19 10:13 Dose: 100 mls/hr Documented by: Potassium Chloride (K-Hussein) 40 meq in 100 mls @ 25 mls/hr IV ONCE ONE Stop: 12/12/19 13:59 Last Admin: 12/12/19 10:41 Dose: 25 mls/hr Documented by: Morphine Sulfate (Morphine) 2 mg IVP Q4H PRN PRN Reason: SEVERE PAIN Last Admin: 12/12/19 10:47 Dose: 2 mg Documented by: Ondansetron HCl (Zofran) 4 mg IVP Q6H PRN PRN Reason: NAUSEA AND VOMITING Last Admin: 12/12/19 10:49 Dose: 4 mg Documented by: Prednisone (Prednisone) 10 mg PO Q48H [facility] Last Admin: 12/12/19 10:12 Dose: 10 mg Documented by: Tacrolimus (Prograf) 4 mg PO DAILY [facility] Last Admin: 12/12/19 10:10 Dose: 4 mg Documented by: Discharge Plan Discharge Patient Disposition: Xfer Other Condition: Stable Prescriptions: No Action hydrochlorothiazide 25 mg tablet 25 mg PO DAILY Qty: 90 RF: 0 prednisone 10 mg tablet 10 mg PO DAILY RF: 0 atenolol 50 mg tablet 50 mg PO DAILY RF: 0 Rapamune 2 mg Tablet 4 mg PO DAILY RF: 0 Discharge Orders: Transfer Out of Facility (Order); Ordered 12/12/19 Ordered By: Julian Gomez Discharge Diet: As Directed Discharge Activity: Resume usual activity Transfer Attestations Time Spent in Transfer Care*: critical care time (Reviewing images, discussing with vp account director Alexis Mason, managing insulin drip and fluids) Critical Care Time (min): 80 Specific Discharge Activities: Specific discharge activities: educating patient, discussing with pcp/other providers, discussing with special education case manager/social workers/dc planners, documenting/other paperwork and evaluating patient/reviewing data Status at Transfer: Cognitive status at transfer: cognitively intact, Behavioral status at transfer: cooperative, Functional status at transfer: independent ambulation Overall status at transfer: patient is progressing back to baseline Quality Metrics Clinical Quality Measures: During this hospital stay, did patient experience: None Coding Level of Care Code Acute Seam Hammerer for Kia Fwd Diagnoses Acute pancreatitis K85.90 Pancreatitis type: unspecified pancreatitis type Hypokalemia E87.6 Acute hyponatremia E87.1 MARGOTH (acute kidney injury) N17.9 Dehydration E86.0 Kidney transplant recipient Z94.0 Pyelonephritis of transplanted kidney T86.19; N12 Acute rejection of renal transplant T86.11
--- NOTE | 2019-12-12 13:59 | PC.NURSE ---
pt transferred to [facility] via [facility]. [facility] updated with ETA.
[2019-12-12 16:25] LABS: Glucose Point of Care 153 mg/dL (70-110)
== END 2019-12-12 14:00 | disposition short-term general hospital (02) | DRG 439 ==
LOC: ER 19:19 → ICU 20:40
PROVIDERS: Nurse Practitioner Family; Admitting Provider Internal Medicine; Emergency Provider Emergency Medicine; Visit Provider Student in an Organized Health Care Education/Training Program
DX: K85.90 Acute pancreatitis without necrosis or infection, unspecified (principal); N17.9 Acute kidney failure, unspecified; E87.1 Hypo-osmolality and hyponatremia; Z94.0 Kidney transplant status; E87.6 Hypokalemia; I10 Essential (primary) hypertension; C44.92 Squamous cell carcinoma of skin, unspecified; E86.0 Dehydration; Z85.828 Personal history of other malignant neoplasm of skin; E78.5 Hyperlipidemia, unspecified; F12.90 Cannabis use, unspecified, uncomplicated
CPT/HCPCS: 12345; 36415; 36416; 51798; 74176; 80053; 80306; 80307; 81001; 82550; 82962; 83605; 83690; 84145; 84478; 85025; 87040; 87641; 93005; 93306; 96372; 96375; 99283; J1170; J1644; J1815; J2001; J2270; J2405; J3480; J3490; J7030; J7050; J7507; J7512

== ENCOUNTER 2020-08-10 13:38 | Outpatient (CLI) | payer MEDICARE, SELFPAY ==
--- NOTE | 2020-08-10 13:46 | XR_ITS ---
WS: [id number] ABDOMEN SERIES Supine and upright views of the abdomen CLINICAL INFORMATION: ABD DISTENSION, (GASEOUS), UNSPECIFIED ABDOMINAL PAIN COMPARISON: None. FINDINGS: Surgical clips right lower quadrant and pelvis. No free air on the upright view. Normal bowel gas pattern. Scattered stool in the colon. No bowel dis tention. No evidence of high-grade obstruction. XR/XR abdomen min 2V [id number] IMPRESSION: Unremarkable bowel gas pattern
== END 2020-08-10 13:39 | disposition home or self-care (01) ==
PROVIDERS: PCP Nurse Practitioner Family; Visit Provider Nurse Practitioner Family
DX: R14.0 Abdominal distension (gaseous) (principal); R10.9 Unspecified abdominal pain
CPT/HCPCS: 74019

== ENCOUNTER 2020-12-16 08:05 | Outpatient (CLI) | payer MEDICARE, SELFPAY ==
--- NOTE | 2020-12-16 08:17 | XR_ITS ---
WS: [id number] Left femur and thigh, AP and lateral views, 12/16/2020 Clinical Data: INJURY OF LEFT LOWER LEG Comparison: None. Findings: No fractures or dislocations are seen. The soft tissues are normal. The visualized knee shows no abno rmalities. XR/XR femur LT min 2V* [id number] Impression: Negative left femur and thigh.
--- NOTE | 2020-12-16 08:17 | XR_ITS ---
WS: [id number] Left leg including the tibia and fibula, AP and lateral views, 12/16/2020 Clinical Data: EDEMA/INJURY OF L LOWER LEG Comparison: None. Findings: No fractures or dislocations are seen. The tibia and fibula are intact. The soft tissues are normal. XR/XR tibia fibula LT 2V [id number] Impression: Negative for fracture.
== END 2020-12-16 08:06 | disposition home or self-care (01) ==
LOC: RAD 08:09
PROVIDERS: PCP Nurse Practitioner Family; Visit Provider Nurse Practitioner Family
DX: R60.0 Localized edema (principal); S89.92XA Unspecified injury of left lower leg, initial encounter; X58.XXXA Exposure to other specified factors, initial encounter
CPT/HCPCS: 73552; 73590

== ENCOUNTER 2021-01-27 13:16 | Outpatient (CLI) | payer MEDICARE, SELFPAY ==
--- NOTE | 2021-01-27 13:25 | USCV_ITS ---
Ovidio Jerman Age: 55 Gender: M : 1965 Exam Date: 01/27/2021 13:58 Ordering Phys: Marvel Cabello Technologist: Faina Skelton [place] [facility] [place] TRAUMA LT LAT KNEE HISTORY: Trauma Lt Lat Knee PROCEDURES: Venous duplex imaging was performed in only the left lower extremity. The following venous structures were evaluated: common femoral vein, profunda vein, proximal portion of the greater saphenous vein, superficial femoral vein, and the popliteal vein. In addition, the posterior tibial and peroneal trunk were evaluated. Serial compression, augmentation maneuvers, and spectral Doppler flow evaluation were performed. Area of injury also studied FINDINGS: Normal 2-D Doppler and augmentation and compressibility throughout the lower extremity venous structures. Additional imaging through the proximal calf veins also reveals no thrombus. Limited evaluation of the greater saphenous vein is patent with no thrombus.. Area of interest is neg CONCLUSIONS No evidence of left lower extremity DVT. Joe Cortez MD (Electronically Signed) Final Date: 27 January 2021 16:39 S
== END 2021-01-27 13:17 | disposition home or self-care (01) ==
LOC: RAD 13:20
PROVIDERS: PCP Nurse Practitioner Family; Visit Provider Physician Assistant
DX: R60.0 Localized edema (principal); S89.92XA Unspecified injury of left lower leg, initial encounter; X58.XXXA Exposure to other specified factors, initial encounter
CPT/HCPCS: 93971

== ENCOUNTER 2022-03-29 13:58 | Outpatient (CLI) | payer MEDICARE, SELFPAY ==
--- NOTE | 2022-03-29 14:23 | XR_ITS ---
WS: [id number] SCREENING DEXA SCAN [employer] CLINICAL INFORMATION: SYSTEMIC STEROID USE, KIDNEY TRANSPLANT STATUS COMPARISON: None. FINDINGS: The L1-L4 bone mineral density measures 1.385 g/cm2. This corresponds to a T score score of 1.4 and Z score of 1.0. Left femoral neck bone mineral density measures 0.946 g/cm2. This corresponds to a T score of -1.1 an d Z score of -1.1. Right femoral neck bone mineral density measures 0.460 g/cm2. This corresponds to a T score -4.4of an d Z score of -4.5. Mean femoral neck bone mineral density measures 0.703 g/cm2. This corresponds to a T score of -2.8 an d Z score of -2.8. XR/XR DEXA axial skeleton* [id number] IMPRESSION: Osteoporosis in the femoral necks, worse in the RIGHT femoral neck. Normal bone mineralization lumbar spine. Patient's FRAX calculated 10 year probability for major osteoporotic fracture i s 37.2 % and osteoporotic hip fracture is 29.8%.
== END 2022-03-29 13:59 | disposition home or self-care (01) ==
PROVIDERS: PCP Nurse Practitioner Family; Visit Provider Nurse Practitioner Family
DX: Z94.0 Kidney transplant status (principal); Z79.52 Long term (current) use of systemic steroids; E11.21 Type 2 diabetes mellitus with diabetic nephropathy; M81.0 Age-related osteoporosis without current pathological fracture
CPT/HCPCS: 77080

== ENCOUNTER 2022-10-25 13:48 | Emergency (ER) | payer MEDICARE, SELFPAY ==
[2022-10-25 14:01] VITALS: BP 141/81; PULSE 74; TEMP 36.4; O2SAT 97; BMI 33.5
[2022-10-25] MEDS: carbamide peroxide Otic 15 mL Btl 5 DROP EAR-RIGHT (15:07)
--- NOTE | 2022-10-25 15:09 | ED_ITS ---
HPI - Ear Problem General: Chief complaint: Ear Stated complaint: Right Ear pain Time Seen by Provider: 10/25/22 14:37 History of Present Illness: Patient is a 57-year-old male comes to the ED with right ear pain. Patient says last night his right ear was itching and bothering him quite a bit and felt very full. He described it as feeling like his ear was underwater. Today he felt a pop in his right ear and some clear and bloody discharge came out of ear. He endorses having some pain in right ear now as well. He also says he is having trouble hearing out of his right ear since his right ear popped. Denies any fevers or any other symptoms. Associated symptoms: Reports ear or mastoid pain (Right ear); Denies fever(s), headache(s) or neck pain Review of Systems Const: Denies: fever(s), chills or fatigue Eyes: Denies: change in vision or eye discomfort ENMT: Reports: ear or mastoid pain (Right ear), ear discharge (Right ear-clear and bloody drainage) and change in hearing (Right ear); Denies: throat pain, odynophagia, nasal discharge or nasal congestion Card: Denies: chest pain, palpitations, edema, swelling of feet/ankles, dyspnea on exertion or orthopnea Resp: Denies: dyspnea, productive cough or non-productive cough GI: Denies: abdominal pain, nausea, vomiting, diarrhea, constipation or hematochezia : Denies: flank pain, difficulty urinating, dysuria or hematuria Musc: Denies: neck pain, back pain or extremity swelling Skin/Breast: Denies: rash or new lesions Neuro: Denies: headache(s), numbness in extremities or weakness in extremities PFSH ED PFSH: Medical History Dyslipidemia Hypertension Immunosuppression Medical marijuana use Nephritis Skin cancer Squamous cell cancer Surgical History Kidney transplant recipient 1984 Family History Other Hypertension Denies family history of Hyperlipidemia Lung disease Social History Smoking and tobacco status: never smoked Physical Exam Const: COMMON NORMALS: no acute distress, patient oriented x3 and alert HENMT: COMMON NORMALS: normocephalic HEAD & SCALP: normocephalic TYMPANIC MEMBRANE: TM normal on the left and TM abnormal TM laterality: right Details: erythematous and perforation Details: with bloody discharge and purulent discharge MOUTH: Normal oral and palatal mucosa present THROAT: posterior oropharynx normal and uvula midline Neck/C-Spine: COMMON NORMALS: supple GENERAL: Yes normal visual inspection Resp: COMMON NORMALS: normal respiratory effort, No retractions, No use of accessory muscles and clear to auscultation bilaterally AUSCULTATION: clear to auscultation bilaterally Cardio: COMMON NORMALS: regular rate, regular rhythm, S1 normal heart sound present, S2 normal heart sound present, No gallops present (Cardio), No clicks present (Cardio), No murmurs present (Cardio) and Peripheral pulses 2+ throughout RATE: regular rate RHYTHM: regular rhythm HEART SOUNDS: S1 normal heart sound present and S2 normal heart sound present PERIPHERAL PULSES: Peripheral pulses 2+ throughout GI: COMMON NORMALS: Normal to inspection, nondistended, normoactive bowel sounds present, Soft to palpation, non-tender and no masses PALPATION: Yes Soft to palpation : COMMON NORMALS: Yes no CVA tenderness BLADDER/KIDNEY EXAM: Yes no CVA tenderness Back/Pelvis: COMMON NORMALS: no CVA tenderness Extremity: COMMON NORMALS: normal to inspection Neuro: COMMON NORMALS: patient oriented x3 SENSORIUM/ORIENTATION: Yes alert GAIT: Yes Normal gait present Skin: GENERAL SKIN EXAM: dry skin Course Vital Signs: Vital signs: Vital Signs Temperature 97.6 F 10/25/22 14:01 Pulse Rate 74 10/25/22 14:01 Blood Pressure 141/81 10/25/22 14:01 Pulse Oximetry 97 10/25/22 14:01 Oxygen Delivery Me thod Room Air 10/25/22 14:01 MDM - Ear Medical Decision Making Patient is a 57-year-old male comes to the ED with right ear pain. Patient says last night his right ear was itching and bothering him quite a bit and felt very full. He described it as feeling like his ear was underwater. Today he felt a pop in his right ear and some clear and bloody discharge came out of ear. He endorses having some pain in right ear now as well. He also says he is having trouble hearing out of his right ear since his right ear popped. Denies any fevers or any other symptoms. Vital stable. Patient appears nontoxic in no acute distress or pain. Right ear exam shows otitis media with ruptured membrane and some purulent and bloody discharge from ear. Patient was diagnosed with otitis media with ruptured eardrum and discharged home with a prescription for an oral antibiotic and some antibiotic eardrops. Told to follow-up with his PCP in the next week for reevaluation and if needed have PCP refer patient to ENT specialist. Return to ED precautions given. Patient understood and agreed with plan. Discharge Plan Discharge Patient Disposition: Home Clinical Impression: Otitis media of right ear with rupture of tympanic membrane Condition: Stable Prescriptions: New Ciprodex 0.3-0.1 % drops,suspension 4 drp otic (ear) BID 7 Days Qty: 7.5 0RF amoxicillin-pot clavulanate 500-125 mg tablet 1 tab PO BID 10 Days Qty: 20 0RF No Action hydrochlorothiazide 25 mg tablet 25 mg PO DAILY Qty: 90 0RF prednisone 10 mg tablet 10 mg PO DAILY atenolol 50 mg tablet 50 mg PO DAILY Rapamune 2 mg Tablet 4 mg PO DAILY Discharge Orders: Discharge ED (Routine); Ordered 10/25/22 Ordered By: Kieran Jalloh Referrals: Cierra Nieves FNP [Primary Care Provider] - Discharge Diet: Regular Discharge Activity: Increase activity as tolerated Patient Instructions: Otitis Media - Adult, Ruptured Eardrum (ED) Activity Restrictions/Additional Instructions: Follow-up with medical provider as directed in the next 5 to 7 days for reevaluation. Take medications as prescribed. Return to the ER or your medical provider if condition worsens. Please read and understand discharge instructions. Thank you for choosing [facility] for your healthcare needs today. Please realize this is an emergency room and that we are providing you with a medical screening exam and this may not be complete and all inclusive of all the testing and or work up that you may need to determine your ailment or severity of your illness. It is very important that you follow up as instructed or that you return to the Emergency Department should you have concerns or if your condition changes or worsens in any way. Coding Level of Care Code ED [place] [employer] for Kia Hammond
== END 2022-10-25 16:34 | disposition home or self-care (01) ==
PROVIDERS: Emergency Provider Physician Assistant; PCP Nurse Practitioner Family
DX: H66.91 Otitis media, unspecified, right ear (principal); H72.91 Unspecified perforation of tympanic membrane, right ear; E78.5 Hyperlipidemia, unspecified; I10 Essential (primary) hypertension; Z85.828 Personal history of other malignant neoplasm of skin; Z94.0 Kidney transplant status
CPT/HCPCS: 99283

== ENCOUNTER 2024-08-01 14:18 | Outpatient (CLI) | payer MEDICARE, SELFPAY ==
--- NOTE | 2024-08-01 14:22 | XR_ITS ---
WS: [id number] Right shoulder, 3 views, 08/01/2024 Clinical Data: PAIN IN RIGHT SHOULDER Comparison: None. Findings: No fractures or dislocations are seen. There is spurring of the lesser tuberosity with narrowing and sclerosis of the glenohumeral joint. The AC joint shows mild osteoarthritis. The adjacent right clavi wenceslao, right scapula and ribs are normal. The soft tissues are unremarkable. 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 2. Minimal osteoarthritis of the right AC joint.
== END 2024-08-01 14:19 | disposition home or self-care (01) ==
LOC: RAD 14:19
PROVIDERS: PCP Nurse Practitioner Family; Visit Provider Nurse Practitioner Family
DX: M19.011 Primary osteoarthritis, right shoulder (principal); S49.91XA Unspecified injury of right shoulder and upper arm, initial encounter; X58.XXXA Exposure to other specified factors, initial encounter
CPT/HCPCS: 73030

== ENCOUNTER → 2024-08-08 10:20 | Outpatient (BNVA) | payer MEDICARE, SELFPAY | PROVIDERS: PCP Nurse Practitioner Family; Referring Provider Nurse Practitioner Family; Visit Provider Orthopaedic Surgery | DX: M25.511 Pain in right shoulder (principal); M19.011 Primary osteoarthritis, right shoulder | CPT/HCPCS: 73030; 99204 ==